=== PATIENT | female | born 1960 | race Caucasian/White ===

== ENCOUNTER 2021-02-11 05:20 | Day surgery (SDC) | payer MEDICAID ==
[2021-02-10 11:01] LABS: COVID AG,FIA SOURCE NASOPHARYNGEAL
[~2021-02-11] VITALS: Ht 149.9 cm; Wt 59.1 kg
[~2021-02-11 05:20] MED LIST: ASCO500 PO; GLIP5 PO; LISI-894 PO; METF-960 PO; MULT-1192 PO; RINGERS SOLUTION,LACTATED 1,000 ML IV ONE; SIMV-260 PO
[2021-02-11] MEDS ORDERED: LIDOCAINE/PF 2% 5 ML VIAL IM ONE (05:21)
[2021-02-11] MEDS ORDERED: ONDANSETRON HCL 4 MG/2 ML VIAL IVP ONE (05:21)
[2021-02-11] MEDS ORDERED: MIDAZOLAM HCL 2 MG/2 ML VIAL IVP ONE (05:21)
[2021-02-11] MEDS ORDERED: ROCURONIUM BROMIDE 10 MG/ML 5 ML VIAL IVP ONE (05:21)
[2021-02-11] MEDS ORDERED: PROPOFOL 1% 20 ML VIAL IVP ONE (05:21)
[2021-02-11] MEDS ORDERED: DEXAMETHASONE SOD PHOS 4 MG/ML VIAL IVP ONE (05:21)
[2021-02-11] MEDS ORDERED: MORPHINE SULFATE/PF 0.5 MG/ML 10 ML AMP IVP ONE (05:21)
[2021-02-11] MEDS ORDERED: FentaNYL CITRATE PF 100 MCG/2 ML VIAL IVP ONE (05:21)
[2021-02-11] MEDS ORDERED: RINGERS SOLUTION,LACTATED 1,000 ML IV ONE (05:22)
[2021-02-11] MEDS ORDERED: CeFAZolin 1 GM/DEXTROSE 50 ML IV ONE ×2 (05:22→06:00)
[2021-02-11 06:14] LABS: GLUCOMETER DEV NAME(LOC) SDS.; GLUCOSE,POINT OF CARE 166 MG/DL (70-110)
[2021-02-11] MEDS ORDERED: IOHEXOL 240 MG/ML 20 ML VIAL ONE ×2 (06:15)
[2021-02-11] MEDS ORDERED: BUPIVACAINE 0.25%/EPI 1:200,000/PF 10 ML VIAL ONE (06:16)
[2021-02-11] MEDS ORDERED: SUGAMMADEX SODIUM 200 MG/2 ML VIAL IVP ONE (07:37)
[2021-02-11] MEDS ORDERED: MEPERIDINE-PF 25 MG/ML VIAL IVP PRN (08:00)
[2021-02-11] MEDS ORDERED: OXYGEN THERAPY IH SCH (08:00)
[2021-02-11] MEDS ORDERED: FentaNYL CITRATE PF 100 MCG/2 ML VIAL IVP PRN (08:00)
[2021-02-11] MEDS ORDERED: HYDROmorphone 2 MG/ML VIAL IVP PRN (08:00)
== END 2021-02-11 10:45 | disposition home or self-care (01) ==
LOC: SURGERY 05:20
PROVIDERS: ATTEND Orthopaedic Surgery Orthopaedic Surgery of the Spine
DX: M84.48XA Pathological fracture, other site, initial encounter for fracture (principal); I10 Essential (primary) hypertension; E11.9 Type 2 diabetes mellitus without complications; Z79.899 Other long term (current) drug therapy; Z98.890 Other specified postprocedural states; F17.210 Nicotine dependence, cigarettes, uncomplicated
CPT/HCPCS: 22513; 82962; 87426; C9803; J0690; J1100; J2250; J2274; J2405; J2704; J3010; J3490 ×3; J7120; Q9966; Q9967